=== PATIENT | female | born 1950 | race Two or more races ===

== ENCOUNTER → 2020-07-16 | Outpatient (CLI) | payer MEDICARE, MEDICAID | END | disposition home or self-care (01) | LOC: CFH 09:59 | PROVIDERS: ATTEND Internal Medicine | DX: N64.4 Mastodynia (principal) | CPT/HCPCS: 77062; 77066; G0279 ==

== ENCOUNTER 2020-07-20 11:19 | Outpatient (CLI) | payer MEDICARE, MEDICAID | END 2020-07-20 23:59 | disposition home or self-care (01) | LOC: CFH 11:19 | PROVIDERS: ATTEND Internal Medicine | DX: N95.8 Other specified menopausal and perimenopausal disorders (principal) | CPT/HCPCS: 77080 ==